=== PATIENT | male | born 1960 | race Caucasian/White ===

== ENCOUNTER → 2017-10-12 | Outpatient (CLI) | payer OTHER | END | disposition home or self-care (01) | LOC: LAB SHORT 10:56 → PLD 10:56 | DX: D22.71 Melanocytic nevi of right lower limb, including hip (principal) | CPT/HCPCS: 88305; 88312 ==

== ENCOUNTER → 2019-04-10 | Outpatient (CLI) | payer OTHER | LOC: LAB SHORT 11:36 → LAB 11:36 | DX: B35.1 Tinea unguium (principal) | CPT/HCPCS: 87102 ==